=== PATIENT | female | born 1940 ===

== ENCOUNTER → 2024-01-19 | Outpatient (REF) | payer MEDICARE | LOC: M LAB REF 14:49 | PROVIDERS: ATTEND Internal Medicine Endocrinology, Diabetes & Metabolism | DX: E04.2 Nontoxic multinodular goiter (principal) ==

== ENCOUNTER → 2024-04-04 | Outpatient (REF) | payer MEDICARE | LOC: M LAB REF 15:00 | PROVIDERS: ATTEND Internal Medicine Endocrinology, Diabetes & Metabolism | DX: E04.1 Nontoxic single thyroid nodule (principal) ==